=== PATIENT | female | born 2000 | race Caucasian/White ===

== ENCOUNTER 2019-02-23 11:25 | Emergency (ER) | payer SELFPAY ==
[2019-02-23] MEDS ORDERED: ACETAMINOPHEN 500 MG TAB ONE (14:09)
[2019-02-23] MEDS ORDERED: NA CHLORIDE 0.9% 1,000 ML ONE (14:16)
[2019-02-23 14:34] LABS: Absolute Lymphocytes (CBC) 1.8 K/uL (0.7-4.9); Absolute Monocytes 0.5 K/uL (0.1-1.3); Absolute Neutrophil 4.5 K/uL (1.8-8.0); Basophils % 0.7 % (0-1.3); Lymphocytes % 25.3 % (15.3-44.8); MPV 10.2 fL (7.6-11.3); Monocytes % 7.6 % (3.3-12.3); RBC Red Blood Cell Count 4.73 M/uL (3.86-4.86)
[2019-02-23 14:47] LABS: BUN Blood Urea Nitrogen 8 mg/dL (7-18); Bicarbonate 29 mmol/L (21-32); Glucose Level 74 mg/dL (74-106); HCG, Quantitative 68 mIU/mL (1-3); Potassium 3.6 mmol/L (3.5-5.1); Sodium Level 140 mmol/L (136-145)
--- NOTE | 2019-02-23 17:25 | ER ---
Nurse's Notes [facility] Name: Nida Gutierrez Age: 18 yrs Sex: Female : 2000 Arrival Date: 02/23/2019 Time: 11:29 Bed 25 Private MD: Diagnosis: Threatened Presentation: 02/23 11:36 Presenting complaint: Patient states: i took 2 test last night and they were tw2 positive and i started spotting this morning, i just want to make sure everything is ok. Transition of care: patient was not received from another setting of care. Onset of symptoms was February 23, 2019. Risk Assessment: Do you want to hurt yourself or someone else? Patient reports no desire to harm self or others. Initial Sepsis Screen: Does the patient meet any 2 criteria? No. Patient's initial sepsis screen is negative. Does the patient have a suspected source of infection? No. Patient's initial sepsis screen is negative. Care prior to arrival: None. 11:36 Method Of Arrival: Ambulatory tw2 11:36 Acuity: AMBER 3 tw2 Triage Assessment: 11:38 General: Appears in no apparent distress. Behavior is calm, cooperative, appropriate tw2 for age. Pain: Complains of pain in headache. : Reports vaginal bleeding that is bright red, spotty. 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 - Social history:: Smoking status: Patient/guardian denies using tobacco. - Ebola Screening: : Patient denies travel to an Ebola-affected area in the 21 days before illness onset. Screenin:00 Abuse screen: Denies threats or abuse. Denies injuries from another. Nutritional ca1 screening: No deficits noted. Tuberculosis screening: No symptoms or risk factors identified. Fall Risk None identified. Assessment: 13:00 General: Appears in no apparent distress. comfortable, Behavior is calm, cooperative, ca1 appropriate for age. General:. Pain: Denies pain. Pain began But had back lower back pain this morning. Denies abdominal pain. Neuro: Level of Consciousness is awake, alert, obeys commands, Oriented to person, place, time, situation. Cardiovascular: Heart tones S1 S2 present Capillary refill < 3 seconds Patient's skin is warm and dry. Respiratory: Airway is patent Respiratory effort is even, unlabored, Respiratory pattern is regular, symmetrical. GI: Abdomen is flat, non-distended, Bowel sounds present X 4 quads. Abd is soft and non tender X 4 quads. GI: Reports nausea, vomiting, since this morning. : Urine is clear, Reports vaginal bleeding that is spotty, since this morning. EENT: No deficits noted. No signs and/or symptoms were reported regarding the EENT system. Derm: Skin is intact, is healthy with good turgor, Skin is pink, warm \T\ dry. Musculoskeletal: Circulation, motion, and sensation intact. Capillary refill < 3 seconds. 13:55 Reassessment: Pt reports vaginal bleeding after going to the restroom. Vaginal bleeding ca1 is bright red and saturates half of the pantyliner. Informed provider. 14:00 Reassessment: Patient appears in no apparent distress at this time. Patient and/or ca1 family updated on plan of care and expected duration. Pain level reassessed. Patient is alert, oriented x 3, equal unlabored respirations, skin warm/dry/pink. 15:51 Reassessment: Patient appears in no apparent distress at this time. Patient is alert, ca1 oriented x 3, equal unlabored respirations, skin warm/dry/pink. FINN Morales at bedside. 16:40 Reassessment: Patient appears in no apparent distress at this time. Patient is alert, ca1 oriented x 3, equal unlabored respirations, skin warm/dry/pink. Orders of RhoGam, called lab to check if ready for parts picker. 16:44 Reassessment: Sent order through the tube. ca1 17:30 Reassessment: Patient appears in no apparent distress at this time. Patient and/or ca1 family updated on plan of care and expected duration. Pain level reassessed. Patient is alert, oriented x 3, equal unlabored respirations, skin warm/dry/pink. Pending RhoGam. 18:16 Reassessment: Patient appears in no apparent distress at this time. Patient is alert, ca1 oriented x 3, equal unlabored respirations, skin warm/dry/pink. RhoGam given, kept pt for observation for any reactions. 18:57 Reassessment: Patient appears in no apparent distress at this time. Patient is alert, ca1 oriented x 3, equal unlabored respirations, skin warm/dry/pink. Vital Signs: 11:37 Pulse 117; Resp 18; Temp 97.5(O); Pulse Ox 99% on R/A; Weight 52.16 kg (R); Height 4 tw2 ft. 11 in. (149.86 cm) (R); Pain 8/10; 13:00 BP 110 / 73; Pulse 100; Resp 19; Pulse Ox 100% on R/A; ca1 13:55 BP 106 / 69; Pulse 84; Resp 19 S; Pulse Ox 100% on R/A; ca1 15:51 BP 100 / 77; Pulse 78; Resp 18 S; Pulse Ox 100% on R/A; ca1 16:40 BP 106 / 80; Pulse 101; Resp 18 S; Pulse Ox 95% on R/A; ca1 17:30 BP 114 / 77; Pulse 86; Resp 19 S; Pulse Ox 99% on R/A; ca1 18:57 BP 125 / 75; Pulse 95; Resp 19 S; Pulse Ox 98% on R/A; ca1 11:37 Body Mass Index 23.23 (52.16 kg, 149.86 cm) tw2 ED Course: 11:29 Patient arrived in ED. mr 11:37 Triage completed. tw2 11:37 Arm band placed on. tw2 12:55 Munir Everett PA is PHCP. cp 12:55 Ashu Julian MD is Attending Physician. cp 12:56 Nelida Salinas, ANGEL is Primary Nurse. ca1 13:00 Patient has correct armband on for positive identification. Placed in gown. Bed in low ca1 position. Call light in reach. Side rails up X 1. Pulse ox on. NIBP on. Warm blanket given. 14:18 Initial lab(s) drawn, by me, sent to lab. Inserted saline lock: 22 gauge in left lt1 antecubital area, using aseptic technique. 18:58 No provider procedures requiring assistance completed. IV discontinued, intact, ca1 bleeding controlled, No redness/swelling at site. Pressure dressing applied. Administered Medications: 14:15 Drug: NS 0.9% 1000 ml Route: IV; Rate: 1 bolus; Site: left antecubital; ca1 15:20 Follow up: Urine output 320 ml; Response: No adverse reaction; IV Status: Completed ca1 infusion 14:25 Not Given (Patient Refused): Tylenol 1000 mg PO once ca1 15:14 Drug: Rho D Immune Globulin 300 mcg Route: IM; Site: left gluteus; ca1 18:55 Follow up: Response: No adverse reaction ca1 Output: 15:20 Urine: 320ml; Total: 320ml. ca1 Outcome: 17:24 Discharge ordered by MD. cp 18:58 Discharged to home ambulatory, with significant other. ca1 18:58 Condition: stable 18:58 Discharge instructions given to patient, Instructed on discharge instructions, follow up and referral plans. medication usage, Demonstrated understanding of instructions, follow-up care, medications, Prescriptions given X 1. 18:59 Patient left the ED. ca1 Signatures: Gabriela Palacios mr Munir Everett PA PA cp Wise, Tara, RN RN tw2 Nelida Salinas RN RN ca1 Brissa Danielle lt1
--- NOTE | 2019-02-23 17:25 | EDPHYS ---
Physician Documentation [facility] Name: Nida Gutierrez Age: 18 yrs Sex: Female : 2000 Arrival Date: 02/23/2019 Time: 11:29 Bed 25 Private MD: ED Physician Ashu Julian HPI: 02/23 13:45 This 18 yrs old Female presents to ER via Ambulatory with complaints of cp Vaginal Bleeding, Positive test. 13:45 The patient presents with vaginal bleeding that is spotting, a desire for a cp test. Onset: The symptoms/episode began/occurred yesterday. Associated signs and symptoms: Pertinent negatives: constipation, cramping, diarrhea, dysuria, fever, urinary frequency, vaginal discharge, vomiting, abdominal pain. Severity of symptoms: in the emergency department the symptoms are unchanged. The patient is sexually active, does not use protection during intercourse. 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 - Social history:: Smoking status: Patient/guardian denies using tobacco. - Ebola Screening: : Patient denies travel to an Ebola-affected area in the 21 days before illness onset. ROS: 13:50 Constitutional: Negative for body aches, chills, fever, poor PO intake. cp 13:50 Eyes: Negative for injury, pain, redness, and discharge. cp 13:50 ENT: Negative for drainage from ear(s), ear pain, sore throat, difficulty swallowing, difficulty handling secretions. 13:50 Cardiovascular: Negative for chest pain. 13:50 Respiratory: Negative for cough, shortness of breath, wheezing. 13:50 Abdomen/GI: Positive for abdominal pain, Negative for nausea, vomiting, and diarrhea, constipation, anorexia, black/tarry stool, flatulence. 13:50 : Positive for vaginal bleeding, Negative for urinary symptoms, pelvic pain, flank pain. 13:50 Skin: Negative for cellulitis, swelling. 13:50 Neuro: Negative for altered mental status, dizziness, weakness. 13:50 All other systems are negative. Exam: 14:00 Constitutional: The patient appears in no acute distress, alert, awake, non-toxic, well cp developed, well nourished. 14:00 Head/Face: Normocephalic, atraumatic. cp 14:00 Eyes: Periorbital structures: appear normal, Conjunctiva: normal, no exudate, no injection, Lids and lashes: appear normal, bilaterally. 14:00 ENT: External ear(s): are unremarkable, Nose: is normal, Mouth: Lips: moist, Oral mucosa: moist, Posterior pharynx: Airway: no evidence of obstruction, patent. 14:00 Chest/axilla: Inspection: normal, Palpation: is normal. 14:00 Cardiovascular: Rate: normal, Rhythm: regular. 14:00 Respiratory: the patient does not display signs of respiratory distress, Respirations: normal, no use of accessory muscles, no retractions, no splinting, no tachypnea, labored breathing, is not present, Breath sounds: are clear throughout, no decreased breath sounds, no stridor, no wheezing. 14:00 Abdomen/GI: Inspection: abdomen appears normal, Bowel sounds: active, all quadrants, Palpation: abdomen is soft and non-tender, in all quadrants. 14:00 Back: pain, is absent, ROM is normal. 14:00 Skin: no rash present. Vital Signs: 11:37 Pulse 117; Resp 18; Temp 97.5(O); Pulse Ox 99% on R/A; Weight 52.16 kg (R); Height 4 tw2 ft. 11 in. (149.86 cm) (R); Pain 8/10; 13:00 BP 110 / 73; Pulse 100; Resp 19; Pulse Ox 100% on R/A; ca1 13:55 BP 106 / 69; Pulse 84; Resp 19 S; Pulse Ox 100% on R/A; ca1 15:51 BP 100 / 77; Pulse 78; Resp 18 S; Pulse Ox 100% on R/A; ca1 16:40 BP 106 / 80; Pulse 101; Resp 18 S; Pulse Ox 95% on R/A; ca1 17:30 BP 114 / 77; Pulse 86; Resp 19 S; Pulse Ox 99% on R/A; ca1 18:57 BP 125 / 75; Pulse 95; Resp 19 S; Pulse Ox 98% on R/A; ca1 11:37 Body Mass Index 23.23 (52.16 kg, 149.86 cm) tw2 MDM: 12:55 Patient medically screened. cp 14:00 Differential diagnosis: dysmenorrhea, malignancy, menometrorrhagia, ovarian cyst, cp ruptured ectopic , uterine fibroids, urinary tract infection. 17:20 Data reviewed: vital signs, nurses notes, lab test result(s), and as a result, I will cp discharge patient. 17:22 Counseling: I had a detailed discussion with the patient and/or guardian regarding: the cp historical points, exam findings, and any diagnostic results supporting the discharge/admit diagnosis, lab results, the need for outpatient follow up, an OB/Gyne specialist, to return to the emergency department if symptoms worsen or persist or if there are any questions or concerns that arise at home. 02/23 13:51 Order name: Quantitative Hcg; Complete Time: 15:24 02/23 15:24 Interpretation: HCGQ 68; Reviewed. 02/23 13:51 Order name: Abo/rh Typing 02/23 16:18 Interpretation: Reviewed. 02/23 13:51 Order name: Basic Metabolic Panel; Complete Time: 15:24 02/23 15:42 Interpretation: Reviewed. 02/23 13:51 Order name: CBC with Diff; Complete Time: 15:24 02/23 17:00 Order name: Rh Typing [facility] 02/23 17:00 Order name: Antibody Screen [facility] 02/23 13:51 Order name: Urine Test (obtain specimen); Complete Time: 14:25 02/23 13:51 Order name: IV Saline Lock; Complete Time: 14:18 02/23 17:00 Order name: Fetalscreen [facility] 02/23 17:00 Order name: Cord Rh type [facility] 02/23 17:00 Order name: Rhogam [facility] 02/23 13:51 Order name: Labs collected and sent; Complete Time: 14:18 02/23 13:51 Order name: NPO; Complete Time: 14:25 02/23 13:51 Order name: Urine Dipstick-Ancillary (obtain specimen); Complete Time: 14:18 cp Administered Medications: 14:15 Drug: NS 0.9% 1000 ml Route: IV; Rate: 1 bolus; Site: left antecubital; ca1 15:20 Follow up: Urine output 320 ml; Response: No adverse reaction; IV Status: Completed ca1 infusion 14:25 Not Given (Patient Refused): Tylenol 1000 mg PO once ca1 15:14 Drug: Rho D Immune Globulin 300 mcg Route: IM; Site: left gluteus; ca1 18:55 Follow up: Response: No adverse reaction ca1 Disposition: 02/24 06:48 Co-signature as Attending Physician, Ashu Julian MD I agree with the assessment and kdr plan of care. Disposition: 02/23/19 17:24 Discharged to Home. Impression: Threatened . - Condition is Stable. - Discharge Instructions: Threatened Miscarriage, Vaginal Bleeding During , First Trimester, Pelvic Rest. - Prescriptions for Vitamin 27- 0.8 mg Oral Tablet - take 1 tablet by ORAL route once daily; 60 tablet. - Medication Reconciliation Form, Thank You Letter, Antibiotic Education, Prescription Opioid Use form. - Follow up: Private Physician; When: 48 Hours; Reason: Repeat Beta-HCG (48 Hours). - Problem is new. - Symptoms have improved. Signatures: Dispatcher [employer] EDMS Ashu Julian MD MD kdr Munir Everett PA PA cp Lashell Gonzalez RN RN tw2 Nelida Salinas RN RN ca1 Corrections: (The following items were deleted from the chart) 02/23 18:59 17:24 02/23/2019 17:24 Discharged to Home. Impression: Threatened . Condition ca1 is Stable. Forms are Medication Reconciliation Form, Thank You Letter, Antibiotic Education, Prescription Opioid Use. Follow up: Private Physician; When: 48 Hours; Reason: Repeat Beta-HCG (48 Hours). Problem is new. Symptoms have improved. cp
[2019-02-23 19:04] VITALS: TEMP 97.5
[2019-02-23 19:11] VITALS: BP 125/75; O2SAT 98
== END 2019-02-23 18:59 | disposition home or self-care (01) ==
LOC: ER 11:25
DX: O20.0 Threatened abortion (principal); Z3A.00 Weeks of gestation of pregnancy not specified
CPT/HCPCS: 36415; 80048; 84702; 85025; 85461; 86850; 86900; 86901; 96360; 96372; 99284; J2790; J7030

== ENCOUNTER 2019-02-25 19:41 | Emergency (ER) | payer SELFPAY ==
--- NOTE | 2019-02-25 22:33 | ER ---
Nurse's Notes [facility] Name: Nida Gutierrez Age: 18 yrs Sex: Female : 2000 Arrival Date: 02/25/2019 Time: 19:42 Bed 14 Private MD: Diagnosis: Spontaneous Presentation: 02/25 19:57 Presenting complaint: Patient states: "I'm just here to get a blood test done to see if aj1 my hormones have come up, I was here 2 days ago, but I dont have a doctor so they told me to just come back" Patient reports that she is still having some vaginal bleeding at this time, but she is still having positive tests. Transition of care: patient was not received from another setting of care. Onset of symptoms was February 23, 2018. Risk Assessment: Do you want to hurt yourself or someone else? Patient reports no desire to harm self or others. Initial Sepsis Screen: Does the patient meet any 2 criteria? No. Patient's initial sepsis screen is negative. Does the patient have a suspected source of infection? No. Patient's initial sepsis screen is negative. Care prior to arrival: None. 19:57 Method Of Arrival: Ambulatory aj1 19:57 Acuity: AMBER 4 aj1 Triage Assessment: 19:59 General: Appears in no apparent distress. comfortable, Behavior is calm, cooperative, aj1 appropriate for age. Pain: Denies pain. Neuro: Level of Consciousness is awake, alert, obeys commands, Oriented to person, place, time, situation. Cardiovascular: Patient's skin is warm and dry. Respiratory: Airway is patent Respiratory effort is even, unlabored, Respiratory pattern is regular, symmetrical. : Parent/caregiver report the patient having vaginal bleeding that is bright red that is "just like a normal period". Derm: No signs and/or symptoms reported regarding the dermatologic system. Skin is pink, warm \\T\\ dry. normal. 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 - Social history:: Smoking status: Patient/guardian denies using tobacco. - Ebola Screening: : Patient denies travel to an Ebola-affected area in the 21 days before illness onset. Screenin:05 Abuse screen: Denies threats or abuse. Denies injuries from another. Nutritional ak1 screening: No deficits noted. Tuberculosis screening: No symptoms or risk factors identified. Fall Risk None identified. Assessment: 20:05 Reassessment: Patient appears in no apparent distress at this time. Patient and/or ak1 family updated on plan of care and expected duration. Pain level reassessed. Patient is alert, oriented x 3, equal unlabored respirations, skin warm/dry/pink. pt denies pain. pt denies any new vaginal bleeding stating the bleeding is the same amount and frequency as 2 days ago when seen in ER. pt stated she returned to ER for HCG testing due to not having an established DIETITIAN HELPER. General: Appears in no apparent distress. Neuro: No deficits noted. Cardiovascular: No deficits noted. Respiratory: No deficits noted. GI: No signs and/or symptoms were reported involving the gastrointestinal system. : No signs and/or symptoms were reported regarding the genitourinary system. EENT: No signs and/or symptoms were reported regarding the EENT system. Derm: No signs and/or symptoms reported regarding the dermatologic system. Musculoskeletal: No signs and/or symptoms reported regarding the musculoskeletal system. 20:38 Reassessment: Patient appears in no apparent distress at this time. No changes from ak1 previously documented assessment. pt waiting for lab results. 21:37 Reassessment: Patient appears in no apparent distress at this time. No changes from ak1 previously documented assessment. Patient and/or family updated on plan of care and expected duration. Pain level reassessed. pt waiting on US. Vital Signs: 19:59 BP 116 / 78; Pulse 84; Resp 18; Temp 97.9; Pulse Ox 100% on R/A; Weight 52.16 kg (R); aj1 Height 4 ft. 11 in. (149.86 cm) (R); Pain 0/10; 19:59 Body Mass Index 23.23 (52.16 kg, 149.86 cm) aj1 ED Course: 19:42 Patient arrived in ED. do 19:58 Triage completed. aj1 19:59 Arm band placed on Patient placed in an exam room. aj1 20:01 José Miguel Montejo PA is PHCP. jr8 20:01 Marino Ulrich MD is Attending Physician. jr8 20:05 Selma Dhillon, RN is Primary Nurse. ak1 20:05 Patient has correct armband on for positive identification. Bed in low position. Call ak1 light in reach. Side rails up X 1. 22:13 US Transvaginal Ob In Process Unspecified. EDMS 22:13 Ultrasound completed. Patient tolerated well. sg3 22:33 No provider procedures requiring assistance completed. Patient did not have IV access ak1 during this emergency room visit. Administered Medications: No medications were administered Outcome: 22:32 Discharge ordered by . jr8 22:33 Discharged to home ambulatory, with family. ak1 22:33 Condition: stable 22:33 Discharge instructions given to patient, Instructed on discharge instructions, follow up and referral plans. Demonstrated understanding of instructions, follow-up care. 22:38 Patient left the ED. ak1 Signatures: Dispatcher [employer] EDMS Tawnya Curtis, RN RN aj1 José Miguel Montejo PA PA jr8 Selma Dhillon, RN RN ak1 Lilian Nelson Sarah sg3
--- NOTE | 2019-02-25 22:33 | EDPHYS ---
Physician Documentation [facility] Name: Nida Gutierrez Age: 18 yrs Sex: Female : 2000 Arrival Date: 02/25/2019 Time: 19:42 Bed 14 Private MD: ED Physician Marino Ulrich HPI: 02/25 20:31 This 18 yrs old Female presents to ER via Ambulatory with complaints of Blood jr8 Test for Hormone Levels. 20:31 Patient was seen here 48 hours ago. 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 Stated that she started spotting on the of this month. Still spotting but improving somewhat. Stated that she was told to come back here for redraw of her HCG . Severity of symptoms: At their worst the symptoms were mild in the emergency department the symptoms are unchanged. The patient has not experienced similar symptoms in the past. The patient has been recently seen by a physician:. 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 - Social history:: Smoking status: Patient/guardian denies using tobacco. - Ebola Screening: : Patient denies travel to an Ebola-affected area in the 21 days before illness onset. ROS: 20:31 Eyes: Negative for injury, pain, redness, and discharge, ENT: Negative for injury, jr8 pain, and discharge, Neck: Negative for injury, pain, and swelling, Cardiovascular: Negative for chest pain, palpitations, and edema, Respiratory: Negative for shortness of breath, cough, wheezing, and pleuritic chest pain, Abdomen/GI: Negative for abdominal pain, nausea, vomiting, diarrhea, and constipation, Back: Negative for injury and pain, MS/Extremity: Negative for injury and deformity, Skin: Negative for injury, rash, and discoloration, Neuro: Negative for headache, weakness, numbness, tingling, and seizure. 20:31 : Positive for vaginal bleeding, missed period. Exam: 20:31 Eyes: Pupils equal round and reactive to light, extra-ocular motions intact. Lids and jr8 lashes normal. Conjunctiva and sclera are non-icteric and not injected. Cornea within normal limits. Periorbital areas with no swelling, redness, or edema. ENT: Nares patent. No nasal discharge, no septal abnormalities noted. Tympanic membranes are normal and external auditory canals are clear. Oropharynx with no redness, swelling, or masses, exudates, or evidence of obstruction, uvula midline. Mucous membranes moist. Neck: Trachea midline, no thyromegaly or masses palpated, and no cervical lymphadenopathy. Supple, full range of motion without nuchal rigidity, or vertebral point tenderness. No Meningismus. Cardiovascular: Regular rate and rhythm with a normal S1 and S2. No gallops, murmurs, or rubs. Normal PMI, no JVD. No pulse deficits. Respiratory: Lungs have equal breath sounds bilaterally, clear to auscultation and percussion. No rales, rhonchi or wheezes noted. No increased work of breathing, no retractions or nasal flaring. Abdomen/GI: Soft, non-tender, with normal bowel sounds. No distension or tympany. No guarding or rebound. No evidence of tenderness throughout. Back: No spinal tenderness. No costovertebral tenderness. Full range of motion. Skin: Warm, dry with normal turgor. Normal color with no rashes, no lesions, and no evidence of cellulitis. MS/ Extremity: Pulses equal, no cyanosis. Neurovascular intact. Full, normal range of motion. Neuro: Awake and alert, GCS 15, oriented to person, place, time, and situation. Cranial nerves II-XII grossly intact. Motor strength 5/5 in all extremities. Sensory grossly intact. Cerebellar exam normal. Normal gait. Vital Signs: 19:59 BP 116 / 78; Pulse 84; Resp 18; Temp 97.9; Pulse Ox 100% on R/A; Weight 52.16 kg (R); aj1 Height 4 ft. 11 in. (149.86 cm) (R); Pain 0/10; 19:59 Body Mass Index 23.23 (52.16 kg, 149.86 cm) aj1 MDM: 20:01 Patient medically screened. [facility] 21:04 Data reviewed: vital signs, nurses notes, lab test result(s), Beta HC today. Was jr8 68 two days ago. Data interpreted: Pulse oximetry: on room air is 100 %. Interpretation: normal. Counseling: I had a detailed discussion with the patient and/or guardian regarding: the historical points, exam findings, and any diagnostic results supporting the discharge/admit diagnosis, lab results, the need for outpatient follow up, an OB/Gyne specialist, to return to the emergency department if symptoms worsen or persist or if there are any questions or concerns that arise at home. 21:21 ED course: Detailed discussion with patient had significant other. After discussing jr8 with them that this will more then likely be a non viable vs. blighted ovum they requested to get US to make sure nothing else could be done . 22:31 ED course: No sign of IUP on US. That coupled with dropping HCG. More then likely jr8 Complete miscarry. Explained to them that they still need to f/u to trend HCG down to 0. 02/25 20:01 Order name: HCG-Quantitative; Complete Time: 20:57 jr8 02/25 21:21 Order name: Transvaginal Ob jr8 Administered Medications: No medications were administered Disposition: 02/26 07:11 Co-signature as Attending Physician, Marino Ulrich MD I agree with the assessment and tw4 plan of care. Disposition: 02/25/19 22:32 Discharged to Home. Impression: Spontaneous . - Condition is Stable. - Discharge Instructions: Miscarriage. - Medication Reconciliation Form, Thank You Letter, Antibiotic Education, Prescription Opioid Use form. - Follow up: Private Physician; When: 5 - 6 days; Reason: Recheck today's complaints, Continuance of care, Re-evaluation by your physician. - Problem is new. - Symptoms have improved. Signatures: Dispatcher [employer] Tawnya Goldberg RN RN golden1 José Miguel Montejo PA PA jr8 Selma Dhillon RN RN ak1 Marino Ulrich MD MD tw4 Corrections: (The following items were deleted from the chart) 02/25 22:38 22:32 02/25/2019 22:32 Discharged to Home. Impression: Spontaneous . Condition ak1 is Stable. Forms are Medication Reconciliation Form, Thank You Letter, Antibiotic Education, Prescription Opioid Use. Follow up: Private Physician; When: 5 - 6 days; Reason: Recheck today's complaints, Continuance of care, Re-evaluation by your physician. Problem is new. Symptoms have improved. jr8
[2019-02-25 23:10] VITALS: BP 116/78; TEMP 97.9; O2SAT 100
--- NOTE | 2019-02-26 09:04 | RAD REPORT ---
EXAM DESCRIPTION: US - Transvaginal OB - 02/25/2019 10:13 pm CLINICAL HISTORY: with vaginal bleeding COMPARISON: None. FINDINGS: The uterus 6 x 3 x 3 centimeters. The endometrial stripe measures 8 millimeters. A gestat ional sac is not seen. Ovaries are normal in size and echotexture. 2 centimeter right ovarian cyst. An adnexal mass is not n oted. No significant free fluid IMPRESSION: Nonvisualization of a gestational sac within the endometrium These findings could represent an early intrauterine in which the gestational sac is not se en. and even an ectopic can also result in this appearance. This all should be cor related clinically and with serial beta HCG levels. Followup endovaginal sonogram in 1 week recommend ed
== END 2019-02-25 22:38 | disposition home or self-care (01) ==
LOC: ER 19:41
DX: O03.9 Complete or unspecified spontaneous abortion without complication (principal); Z3A.00 Weeks of gestation of pregnancy not specified
CPT/HCPCS: 36415; 76817; 84702; 99283

== ENCOUNTER 2020-08-11 01:17 | Emergency (ER) | payer OTHER ==
--- OUTSIDE RECORDS SUMMARY | 2020-08-11 01:19 | XMS REPORT | Continuity of Care Document ---
:2000 Author Organization [facility] t Address [address] [place] [address] Care Team Providers Name Role Phone 1, Lab Attending Clinician Unavailable Doctor Unassigned, Name Attending Clinician Unavailable Nurse, [facility] Attending Clinician Unavailable Pob, Lab Main Attending Clinician Unavailable Juan Antonio CASIANO Attending Clinician 2, Lab Attending Clinician Unavailable Problems This patient has no known problems. Allergies, Adverse Reactions, Alerts This patient has no known allergies or adverse reactions. Medications This patient has no known medications. Procedures This patient has no known procedures. Encounters Start End Encounter Admission Attending Care Care Encounter Source Date/Time Date/Time Type Type Clinicians Facility Department ID 2019-12-27 2019-12-27 Gem Stone Cutter 1, [facility] [id number] 10:10:38 10:25:38 Visit Natalie [id number] [place] [id number] [place] [phone] [id number] 2019-12-27 2019-12-27 Orders Doctor DANIEL [id number] 00:00:00 00:00:00 Only UnassignedSEGUN [id number] [place] [facility] [id number] [id number] 2019-12-27 2019-12-27 Telephone Nurse, [facility] 1.2.840.114 [id number] 00:00:00 00:00:00 [facility] [place] [id number] [facility] [id number] [place] [phone] [address] 2019-12-23 2019-12-23 Gem Stone Cutter Pob, [facility] 1.2.840.114 [id number] 11:17:50 11:32:50 Visit Lab Main [place] [id number] [place] [id number] Professio [phone] [address] 2019-12-21 2019-12-21 Gem Stone Cutter Nino, [facility] [place] 1.2.840.114 [id number] 11:14:10 11:29:10 Visit Lab Main Natalie [id number] [place] [id number] Professio [phone] [address] 2019-12-21 2019-12-21 Case Juan Antonio [facility] [id number] 00:00:00 00:00:00 Management vEelyne Estrada [id number] [place] [id number] Professio [phone] [address] 2019-12-20 2019-12-20 Telephone Juan Antonio TXKRIS 1.2.840.114 [id number] 00:00:00 00:00:00 Evelyne Estrada [id number] [place] [id number] Professio [phone] [address] 2019-12-19 2019-12-19 Gem Stone Cutter 2, [facility] [place] [id number] 13:41:09 13:56:09 Visit Natalie [id number] [place] [id number] Professio [phone] [address] 2019-12-19 2019-12-19 Office Juan Antonio [facility] [id number] 13:03:35 13:32:08 Visit Evelyne Estrada [id number] [place] [id number] Professio [phone] [address] 2019-12-19 2019-12-19 Orders Doctor DANIEL [id number] 00:00:00 00:00:00 Only Unassigned, SE[place] [id number] [place] [facility] [id number] [id number] Results This patient has no known results.
--- NOTE | 2020-08-11 02:36 | ER ---
Nurse's Notes [facility] Name: Nida Gutierrez Age: 19 yrs Sex: Female : 2000 Arrival Date: 08/11/2020 Time: 01:18 Bed 5 Private MD: Diagnosis: ED Course: 08/11 01:18 Patient arrived in ED. cl3 01:47 Patient's name was called from ER lobby. No response. bb 02:35 Patient's name was called from ER lobby. No response. Unable to locate patient. Will bb disposition as left without being seen by a provider. Administered Medications: No medications were administered Outcome: 02:35 Patient left the ED. bb Signatures: Brissa Scherer RN RN bb Chary Ferguson cl3
== END 2020-08-11 02:35 | disposition left against medical advice (07) ==
LOC: ER 01:17
DX: Z02.9 Encounter for administrative examinations, unspecified (principal)

== ENCOUNTER 2020-08-11 11:28 | Emergency (ER) | payer OTHER, SELFPAY ==
--- OUTSIDE RECORDS SUMMARY | 2020-08-11 11:30 | XMS REPORT | Continuity of Care Document ---
:2000 Author Organization [facility] t Address [address] [place] [address] Care Team Providers Name Role Phone 1, Lab Attending Clinician Unavailable Doctor Unassigned, Name Attending Clinician Unavailable Nurse, [facility] Attending Clinician Unavailable Pob, Lab Main Attending [...] Type Clinicians Facility Department ID 2019-12-27 2019-12-27 Electronics Recycler 1, [facility] 1.2.840.114 [id number] 10:10:38 10:25:38 Visit Natalie [id number] [place] [id number] [place] [phone] [id number] 2019-12-27 2019-12-27 Orders Doctor DANIEL 1.2.840.114 [id number] 00:00:00 00:00:00 Only UnassignedSEGUN [id number] [place] [facility] [id number] 2019-12-27 2019-12-27 Telephone Nurse, [facility] 1.2.840.114 [id number] 00:00:00 00:00:00 [facility] [place] [id number] [facility] [id number] Professio [phone] [address] 2019-12-23 2019-12-23 Electronics Recycler Pob, [facility] 1.2.840.114 [id number] 11:17:50 11:32:50 Visit Lab Main [place] [id number] [place] [id number] Professio [phone] [address] 2019-12-21 2019-12-21 Electronics Recycler Nino, [facility] [place] 1.2.840.114 [id number] 11:14:10 11:29:10 Visit Lab Main [place] [id number] [place] [id number] Professio [phone] [address] 2019-12-21 2019-12-21 Case Juan Antonio [facility] [id number] 00:00:00 00:00:00 Management Evelyne Estrada [id number] [place] [id number] Professio [phone] [address] 2019-12-20 2019-12-20 Telephone Juan Antonio VTKRIS 1.2.840.114 [id number] 00:00:00 00:00:00 Evelyne Estrada [id number] [place] [id number] Professio [phone] [address] 2019-12-19 2019-12-19 Electronics Recycler 2, [facility] [place] 1.2.840.114 [id number] 13:41:09 13:56:09 Visit Natalie [id number] [place] [id number] Professio [phone] [address] 2019-12-19 2019-12-19 Office Juan Antonio [facility] [id number] 13:03:35 13:32:08 Visit Evelyne Estrada [id number] [place] [id number] Professio [phone] [address] 2019-12-19 2019-12-19 Orders Doctor DANIEL 1.2.840.114 [id number] 00:00:00 00:00:00 Only Unassigned, SEGUN [id number] [place] [facility] [id number] [id number] Results This patient has no known results.
[2020-08-11] MEDS ORDERED: DIPHENHYDRAMINE 50 MG/ML VIAL ONE (12:42)
[2020-08-11] MEDS ORDERED: KETOROLAC 30 MG/ML INJ ONE (12:43)
[2020-08-11] MEDS ORDERED: NA CHLORIDE 0.9% 1,000 ML ONE (12:43)
--- NOTE | 2020-08-11 14:28 | EDPHYS ---
Physician Documentation [facility] Name: Nida Gutierrez Age: 19 yrs Sex: Female : 2000 Arrival Date: 08/11/2020 Time: 11:33 Bed 4 Private MD: ED Physician Ashu Julian HPI: 08/12 07:22 This 19 yrs old Female presents to ER via Ambulatory with complaints of kdr Headache, Vomiting. 07:22 The patient complains of pain to the top of head and forehead. The patient describes kdr the headache as aching, waxing and waning. Onset: The symptoms/episode began/occurred yesterday. Associated signs and symptoms: Pertinent positives: nausea, vomiting, Pertinent negatives: altered mental status, dizziness, malaise, neck stiffness, paresthesias, Photophobia rash, sinus congestion, sinus tenderness, vision changes, vision loss. Severity of symptoms: At its worst the pain was mild, in the emergency department the pain has resolved. Headache History: The patient has had previous headaches and this one is similar to previous episodes. The symptoms are alleviated by nothing. the symptoms are aggravated by nothing. The patient has not experienced similar symptoms in the past. The patient has not recently seen a physician, Concerned that she may be - she is five days late on her period. 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 - Social history:: Smoking status: Patient denies any tobacco usage or history of. ROS: 08/12 07:22 Constitutional: Negative for fever, chills, and weight loss, Eyes: Negative for injury, kdr pain, redness, and discharge, Neck: Negative for injury, pain, and swelling, Cardiovascular: Negative for chest pain, palpitations, and edema, Respiratory: Negative for shortness of breath, cough, wheezing, and pleuritic chest pain, Back: Negative for injury and pain, : Negative for injury, bleeding, discharge, and swelling, MS/Extremity: Negative for injury and deformity, Skin: Negative for injury, rash, and discoloration, Psych: Negative for depression, anxiety, suicide ideation, homicidal ideation, and hallucinations, Allergy/Immunology: Negative for hives, rash, and allergies, Endocrine: Negative for neck swelling, polydipsia, polyuria, polyphagia, and marked weight changes, Hematologic/Lymphatic: Negative for swollen nodes, abnormal bleeding, and unusual bruising. Abdomen/GI: Positive for nausea and vomiting, Negative for diarrhea, constipation, abdominal cramps, abdominal distension, anorexia, dysphagia, hematemesis, black/tarry stool, rectal pain, rectal bleeding, bowel incontinence. Neuro: Positive for headache, Negative for altered mental status, dizziness, hearing loss, loss of consciousness, numbness, seizure activity, speech changes, syncope, near syncope, tinnitus, tremor, visual changes. Exam: 07:22 Constitutional: This is a well developed, well nourished patient who is awake, alert, kdr and in no acute distress. Head/Face: Normocephalic, atraumatic. Eyes: Pupils equal round and reactive to light, extra-ocular motions intact. Lids and lashes normal. Conjunctiva and sclera are non-icteric and not injected. Cornea within normal limits. Periorbital areas with no swelling, redness, or edema. Neck: Trachea midline, no thyromegaly or masses palpated, and no cervical lymphadenopathy. Supple, full range of motion without nuchal rigidity, or vertebral point tenderness. No Meningismus. Chest/axilla: Normal chest wall appearance and motion. Nontender with no deformity. No lesions are appreciated. Cardiovascular: Regular rate and rhythm with a normal S1 and S2. No gallops, murmurs, or rubs. Normal PMI, no JVD. No pulse deficits. Respiratory: Lungs have equal breath sounds bilaterally, clear to auscultation and percussion. No rales, rhonchi or wheezes noted. No increased work of breathing, no retractions or nasal flaring. Abdomen/GI: Soft, non-tender, with normal bowel sounds. No distension or tympany. No guarding or rebound. No evidence of tenderness throughout. Back: No spinal tenderness. No costovertebral tenderness. Full range of motion. Skin: Warm, dry with normal turgor. Normal color with no rashes, no lesions, and no evidence of cellulitis. MS/ Extremity: Pulses equal, no cyanosis. Neurovascular intact. Full, normal range of motion. Neuro: Awake and alert, GCS 15, oriented to person, place, time, and situation. Cranial nerves II-XII grossly intact. Motor strength 5/5 in all extremities. Sensory grossly intact. Cerebellar exam normal. Normal gait. Psych: Awake, alert, with orientation to person, place and time. Behavior, mood, and affect are within normal limits. Vital Signs: 08/11 11:37 BP 112 / 82; Pulse 79; Resp 17; Temp 97.9; Pulse Ox 98% ; Weight 63.5 kg; Height 4 ft. ll1 11 in. (149.86 cm); Pain 8/10; 11:37 Body Mass Index 28.28 (63.50 kg, 149.86 cm) ll1 MDM: 14:28 Patient medically screened. kdr 08/12 07:22 Data reviewed: vital signs, nurses notes, lab test result(s), radiologic studies. kdr Counseling: I had a detailed discussion with the patient and/or guardian regarding: the historical points, exam findings, and any diagnostic results supporting the discharge/admit diagnosis, lab results, radiology results, the need for outpatient follow up. 08/11 13:17 Order name: HCG-Quantitative iw Administered Medications: 08/11 13:02 Drug: NS 0.9% 1000 ml Route: IV; Rate: 1 bolus; Site: right antecubital; hb 14:30 Follow up: IV Status: Completed infusion iw 13:18 Drug: Benadryl 12.5 mg Route: IVP; Site: right antecubital; hb 14:30 Follow up: Response: No adverse reaction iw 14:16 Not Given (Patient Refused): TORadol - Ketorolac 15 mg IVP once; When UPT negative iw Disposition: 08/11/20 14:28 Discharged to Home. Impression: Vomiting, Headache. - Condition is Stable. - Discharge Instructions: General Headache Without Cause, Nausea and Vomiting, Adult, Bcbw-ay-Aolk. - Medication Reconciliation Form, Thank You Letter, Work release form form. - Follow up: Private Physician; When: 2 - 3 days; Reason: If symptoms return, Further diagnostic work-up, Recheck today's complaints, Continuance of care, Re-evaluation by your physician. - Problem is an ongoing problem. - Symptoms have improved. Signatures: Dispatcher [employer] EDMS Rittger, Ashu, Kayla Rushing MD, RN RN iw Princess Benitez, ANGEL RN Jey Ferguson, RN RN ll1 Corrections: (The following items were deleted from the chart) 14:38 14:28 08/11/2020 14:28 Discharged to Home. Impression: Vomiting; Headache. Condition is iw Stable. Forms are Medication Reconciliation Form, Thank You Letter, Antibiotic Education, Prescription Opioid Use. Follow up: Private Physician; When: 2 - 3 days; Reason: If symptoms return, Further diagnostic work-up, Recheck today's complaints, Continuance of care, Re-evaluation by your physician. Problem is an ongoing problem. Symptoms have improved. kdr
--- NOTE | 2020-08-11 14:28 | ER ---
Nurse's Notes [facility] Name: Nida Gutierrez Age: 19 yrs Sex: Female : 2000 Arrival Date: 08/11/2020 Time: 11:33 Bed 4 Private MD: Diagnosis: Vomiting;Headache Presentation: 08/11 11:37 Chief complaint: Patient states: VOSS with N/V since yesterday. No fever. test ll1 negative, LMP: July 07. Coronavirus screen: Client denies travel out of the [place] in the last 14 days. At this time, the client does not indicate any symptoms associated with coronavirus-19. Ebola Screen: Patient denies travel to an Ebola-affected area in the 21 days before illness onset. Initial Sepsis Screen: Does the patient meet any 2 criteria? No. Patient's initial sepsis screen is negative. Risk Assessment: Do you want to hurt yourself or someone else? Patient reports no desire to harm self or others. Onset of symptoms was August 10, 2020. 11:37 Method Of Arrival: Ambulatory 1 11:37 Acuity: AMBER 3 ll1 14:37 Initial Sepsis Screen: Does the patient have a suspected source of infection? No. iw Patient's initial sepsis screen is negative. Triage Assessment: 14:36 Headache History: The patient has had previous headaches and this one is similar to iw previous episodes. Pain: Pain currently is 0 out of 10 on a pain scale. Pain began Also complains of no other associated symptoms. 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 - Social history:: Smoking status: Patient denies any tobacco usage or history of. Screenin:36 Abuse screen: Denies threats or abuse. Denies injuries from another. Nutritional iw screening: No deficits noted. Tuberculosis screening: No symptoms or risk factors identified. Fall Risk None identified. Assessment: 13:23 General: Appears in no apparent distress. Behavior is calm, cooperative. Pain: iw Complains of pain in head. Neuro: Level of Consciousness is awake, alert, obeys commands, Oriented to person, place, time, situation, Moves all extremities. Full function. Cardiovascular: Capillary refill < 3 seconds in bilateral fingers Patient's skin is warm and dry. Respiratory: Respiratory effort is even, unlabored, Respiratory pattern is regular, symmetrical. GI: Reports vomiting. Derm: Skin is intact, is healthy with good turgor. Musculoskeletal: Range of motion: intact in all extremities. 13:25 Reassessment: pt states she got worried because she drank some water while at work last iw night and then she heard about th possible water contamination so she wanted to get checked out, pt was also concerned she may be because her period is four days late. 14:19 Reassessment: Patient appears in no apparent distress at this time. Patient and/or iw family updated on plan of care and expected duration. Pain level reassessed. Patient is alert, oriented x 3, equal unlabored respirations, skin warm/dry/pink. pt ate half a honey bun and drank half a bottle of spite, no nausea or vomiting, pt ready for dispo, updated on results and advised to repeat UPT at home if does not start period in the next few days Patient states feeling better. Patient states symptoms have improved. Vital Signs: 11:37 BP 112 / 82; Pulse 79; Resp 17; Temp 97.9; Pulse Ox 98% ; Weight 63.5 kg; Height 4 ft. ll1 11 in. (149.86 cm); Pain 8/10; 11:37 Body Mass Index 28.28 (63.50 kg, 149.86 cm) ll1 ED Course: 11:33 Patient arrived in ED. mr 11:39 Ashu Julian MD is Attending Physician. kdr 11:40 Triage completed. ll1 11:40 Arm band placed on Patient placed in an exam room, on a stretcher. ll1 12:07 Princess Benitez, RN is Primary Nurse. hb 13:24 No provider procedures requiring assistance completed. iw 13:24 Initial lab(s) drawn, by me. iw 14:35 IV discontinued, intact, bleeding controlled, No redness/swelling at site. Pressure iw dressing applied. 14:37 Patient has correct armband on for positive identification. iw Administered Medications: 13:02 Drug: NS 0.9% 1000 ml Route: IV; Rate: 1 bolus; Site: right antecubital; hb 14:30 Follow up: IV Status: Completed infusion iw 13:18 Drug: Benadryl 12.5 mg Route: IVP; Site: right antecubital; hb 14:30 Follow up: Response: No adverse reaction iw 14:16 Not Given (Patient Refused): TORadol - Ketorolac 15 mg IVP once; When UPT negative iw Outcome: 14:28 Discharge ordered by . kdr 14:36 Discharged to home ambulatory, with family. iw 14:36 Condition: good 14:36 Discharge instructions given to patient, family, Instructed on discharge instructions, follow up and referral plans. Demonstrated understanding of instructions, follow-up care. 14:38 Patient left the ED. iw Signatures: Ashu Julian MD MD [facility] Gabriela Palacios mr Kayla Maciel RN RN Princess Benitez RN RN Jey Ferguson RN RN ll1
[2020-08-11 14:44] VITALS: BP 112/82; TEMP 97.9; O2SAT 98
== END 2020-08-11 14:38 | disposition home or self-care (01) ==
LOC: ER 11:28
DX: R51 Headache (principal); R11.10 Vomiting, unspecified
CPT/HCPCS: 36415; 84702; 96361; 96374; 99283; J1200; J7030

== ENCOUNTER 2020-09-30 03:48 | Emergency (ER) | payer SELFPAY ==
--- OUTSIDE RECORDS SUMMARY | 2020-09-30 03:50 | XMS REPORT | Continuity of Care Document ---
:2000 Author Organization [facility] t Address [address] [place] [address] Care Team Providers Name Role Phone 1, Lab Attending Clinician Unavailable Doctor Unassigned, Name Attending Clinician Unavailable Nurse, [facility] Attending Clinician Unavailable Pob, Lab Main [...] Type Clinicians Facility Department ID 2019-12-27 2019-12-27 Automation Test Engineer 1, [facility] Lab [facility] [id number] 10:10:38 10:25:38 Visit [place] [id number] [place] [id number] [place] [phone] 353 2019-12-27 2019-12-27 Orders Doctor DANIEL [id number] 00:00:00 00:00:00 Only Unassigned, [place] [id number] [place] [facility] [id number] [id number] 2019-12-27 2019-12-27 Telephone Nurse, [facility] [id number] 00:00:00 00:00:00 [facility]'s [place] [id number] [facility] [id number] [place] [phone] [address] 2019-12-23 2019-12-23 Automation Test Engineer Pob, [facility] [id number] 11:17:50 11:32:50 Visit Lab Main [place] [id number] [place] [id number] [place] [phone] [address] 2019-12-21 2019-12-21 Automation Test Engineer Pob, [facility] 1.2.840.114 [id number] 11:14:10 11:29:10 Visit Lab Main [place] [id number] [place] [id number] [place] [phone] [address] 2019-12-21 2019-12-21 [facility] [id number] 00:00:00 00:00:00 Management Evelyne Estrada [id number] [place] [id number] [place] [phone] [address] 2019-12-20 2019-12-20 Telephone Juan Antonio [facility] [id number] 00:00:00 00:00:00 Evelyne Estrada [id number] [place] [id number] [place] [phone] [address] 2019-12-19 2019-12-19 Automation Test Engineer 2, [facility] Lab [facility] [id number] [id number] 13:41:09 13:56:09 Visit Natalie [id number] [place] [id number] [place] [phone] [address] 2019-12-19 2019-12-19 Office Juan Antonio [facility] [id number] 13:03:35 13:32:08 Visit Evelyne Estrada [id number] [place] [id number] [place] [phone] [address] 2019-12-19 2019-12-19 Orders Doctor DANIEL [id number] 00:00:00 00:00:00 Only Unassigned, SEG[place] [id number] [place] [facility] [phone] [id number] Results This patient has no known results.
[2020-09-30] MEDS ORDERED: DIPHENHYDRAMINE 50 MG/ML VIAL ONE (04:36)
[2020-09-30] MEDS ORDERED: NA CHLORIDE 0.9% 100 ML ONE (04:36)
[2020-09-30 04:43] LABS: Urine Blood NEGATIVE (NEG); Urine Glucose NEGATIVE (NEG); Urine Protein NEGATIVE (NEG); Urine pH 8.5 (5.0-7.0)
[2020-09-30 05:06] LABS: Barbiturates NEGATIVE (NEGATIVE); Benzodiazepines NEGATIVE (NEGATIVE); Cocaine NEGATIVE (NEGATIVE); METHAMPHETAM NEGATIVE (NEGATIVE); Methadone NEGATIVE (NEGATIVE); Opiates NEGATIVE (NEGATIVE); Phencyclidine NEGATIVE (NEGATIVE); THC Cannibis POSITIVE (NEGATIVE)
--- NOTE | 2020-09-30 06:11 | ER ---
Nurse's Notes [facility] Name: Nida Gutierrez Age: 20 yrs Sex: Female : 2000 Arrival Date: 09/30/2020 Time: 03:51 Bed 17 Private MD: Diagnosis: Headache Presentation: 09/30 04:11 Chief complaint: Patient states: Reports headache x 3 days intermittent, when she wakes lp1 and before sleep; States nausea tonight; States lights and noise seem to make headache worse; Denies any OTC medications to relieve pain, reports she cannot swallow pills. Coronavirus screen: Client denies travel out of the [place] in the last 14 days. At this time, the client does not indicate any symptoms associated with coronavirus-19. Ebola Screen: No symptoms or risks identified at this time. Initial Sepsis Screen: Does the patient meet any 2 criteria? No. Patient's initial sepsis screen is negative. Does the patient have a suspected source of infection? No. Patient's initial sepsis screen is negative. Risk Assessment: Do you want to hurt yourself or someone else? Patient reports no desire to harm self or others. Onset of symptoms was September 27, 2020. 04:11 Method Of Arrival: Ambulatory lp1 04:11 Acuity: AMBER 3 lp1 Triage Assessment: 04:14 Headache History: Denies prior headaches. 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 - Social history:: Smoking status: Patient denies any tobacco usage or history of. Patient uses alcohol, occasionally. Screenin:14 Abuse screen: Denies threats or abuse. Denies injuries from another. Nutritional lp1 screening: No deficits noted. Tuberculosis screening: No symptoms or risk factors identified. Fall Risk None identified. Assessment: 04:13 General: Appears in no apparent distress. Behavior is calm, cooperative, appropriate lp1 for age. Pain: Complains of pain in head Pain currently is 7 out of 10 on a pain scale. Quality of pain is described as aching. Neuro: Level of Consciousness is awake, alert, obeys commands, Oriented to person, place, time, situation, Gait is steady, Reports headache frontal area, photophobia. Cardiovascular: Patient's skin is warm and dry. Respiratory: Respiratory effort is even, unlabored. GI: Reports nausea. : No signs and/or symptoms were reported regarding the genitourinary system. EENT: No signs and/or symptoms were reported regarding the EENT system. Derm: Skin is pink, warm \T\ dry. Musculoskeletal: No deficits noted. 06:00 Reassessment: Patient appears in no apparent distress at this time. Patient is alert, lp1 oriented x 3, equal unlabored respirations, skin warm/dry/pink. Patient states feeling better. Patient states symptoms have improved. Vital Signs: 04:11 BP 112 / 92; Pulse 86; Resp 16; Temp 97.9(O); Pulse Ox 96% on R/A; Weight 63.5 kg (R); lp1 Pain 7/10; 06:00 BP 109 / 77; Pulse 82; Resp 16; Pulse Ox 98% on R/A; lp1 [place] Coma Score: 06:09 Eye Response: spontaneous(4). Verbal Response: oriented(5). Motor Response: obeys mh7 commands(6). Total: 15. ED Course: 03:51 Patient arrived in ED. am2 03:57 Marianna Tejeda, RN is Primary Nurse. lp1 03:58 Aram Chris MD is Attending Physician. mh7 04:13 Triage completed. lp1 04:13 Arm band placed on. lp1 04:14 Patient has correct armband on for positive identification. lp1 04:39 Inserted saline lock: 20 gauge in right antecubital area, using aseptic technique. lp1 04:58 CT Head Brain wo Cont In Process Unspecified. EDMS 06:45 No provider procedures requiring assistance completed. IV discontinued, No lp1 redness/swelling at site. Pressure dressing applied. Administered Medications: 04:39 Drug: NS 0.9% 1000 ml Route: IV; Rate: 1000 ml; Site: right antecubital; lp1 06:00 Follow up: IV Status: Completed infusion; IV Intake: 1000ml lp1 04:39 Drug: Benadryl 25 mg Route: IVP; Site: right antecubital; lp1 06:00 Follow up: Response: No adverse reaction lp1 Intake: 06:00 IV: 1000ml; Total: 1000ml. lp1 Outcome: 06:10 Discharge ordered by . 7 06:45 Discharged to home ambulatory, with significant other. lp1 06:45 Condition: good 06:45 Discharge instructions given to patient, Instructed on discharge instructions, follow up and referral plans. Demonstrated understanding of instructions, follow-up care. 06:46 Patient left the ED. 1 Signatures: Dispatcher [employer] EDMarianna Lee RN RN lp1 Elizabeth Styles am2 Aram Chris MD MD 7
--- NOTE | 2020-09-30 06:11 | EDPHYS ---
Physician Documentation [facility] Name: Nida Gutierrez Age: 20 yrs Sex: Female : 2000 Arrival Date: 09/30/2020 Time: 03:51 Bed 17 Private MD: ED Physician Aram Chris HPI: 09/30 04:31 This 20 yrs old Female presents to ER via Ambulatory with complaints of mh7 Headache, Nausea. 04:31 This 20 yrs old Female presents to ER via Ambulatory with complaints of mh7 Headache, Nausea. 04:31 The patient complains of pain to the forehead. The patient describes the headache as mh7 intermittent, throbbing, waxing and waning. Onset: The symptoms/episode began/occurred 3 day(s) ago. Associated signs and symptoms: Pertinent positives: nausea, Photophobia Pertinent negatives: altered mental status, dizziness, fever, malaise, neck stiffness, paresthesias, rash, sinus congestion, sinus tenderness, vision changes, vision loss, vomiting, weakness, vertigo. Severity of symptoms: At its worst the pain was moderate, yesterday, in the emergency department the pain has improved, mildly. Headache History: The patient has had previous headaches and this one is similar to previous episodes. The symptoms are alleviated by nothing. the symptoms are aggravated by lights, noise. 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 - Social history:: Smoking status: Patient denies any tobacco usage or history of. Patient uses alcohol, occasionally. ROS: 04:31 Constitutional: Negative for fever, chills, and weight loss, Eyes: Negative for injury, mh7 pain, redness, and discharge, ENT: Negative for injury, pain, and discharge, Neck: Negative for injury, pain, and swelling, Cardiovascular: Negative for chest pain, palpitations, and edema, Respiratory: Negative for shortness of breath, cough, wheezing, and pleuritic chest pain, Back: Negative for injury and pain, : Negative for injury, bleeding, discharge, and swelling, MS/Extremity: Negative for injury and deformity, Skin: Negative for injury, rash, and discoloration, Psych: Negative for depression, anxiety, suicide ideation, homicidal ideation, and hallucinations, Allergy/Immunology: Negative for hives, rash, and allergies, Endocrine: Negative for neck swelling, polydipsia, polyuria, polyphagia, and marked weight changes, Hematologic/Lymphatic: Negative for swollen nodes, abnormal bleeding, and unusual bruising. Exam: 04:31 Constitutional: This is a well developed, well nourished patient who is awake, alert, mh7 and in no acute distress. Head/Face: Normocephalic, atraumatic. Eyes: Pupils equal round and reactive to light, extra-ocular motions intact. Lids and lashes normal. Conjunctiva and sclera are non-icteric and not injected. Cornea within normal limits. Periorbital areas with no swelling, redness, or edema. Neck: Trachea midline, no thyromegaly or masses palpated, and no cervical lymphadenopathy. Supple, full range of motion without nuchal rigidity, or vertebral point tenderness. No Meningismus. Chest/axilla: Normal chest wall appearance and motion. Nontender with no deformity. No lesions are appreciated. Cardiovascular: Regular rate and rhythm with a normal S1 and S2. No gallops, murmurs, or rubs. Normal PMI, no JVD. No pulse deficits. Respiratory: Lungs have equal breath sounds bilaterally, clear to auscultation and percussion. No rales, rhonchi or wheezes noted. No increased work of breathing, no retractions or nasal flaring. Abdomen/GI: Soft, non-tender, with normal bowel sounds. No distension or tympany. No guarding or rebound. No evidence of tenderness throughout. Back: No spinal tenderness. No costovertebral tenderness. Full range of motion. Skin: Warm, dry with normal turgor. Normal color with no rashes, no lesions, and no evidence of cellulitis. MS/ Extremity: Pulses equal, no cyanosis. Neurovascular intact. Full, normal range of motion. Neuro: Awake and alert, GCS 15, oriented to person, place, time, and situation. Cranial nerves II-XII grossly intact. Motor strength 5/5 in all extremities. Sensory grossly intact. Cerebellar exam normal. Normal gait. Psych: Awake, alert, with orientation to person, place and time. Behavior, mood, and affect are within normal limits. Vital Signs: 04:11 BP 112 / 92; Pulse 86; Resp 16; Temp 97.9(O); Pulse Ox 96% on R/A; Weight 63.5 kg (R); lp1 Pain 7/10; 06:00 BP 109 / 77; Pulse 82; Resp 16; Pulse Ox 98% on R/A; lp1 [place] Coma Score: 06:09 Eye Response: spontaneous(4). Verbal Response: oriented(5). Motor Response: obeys [facility] commands(6). Total: 15. MDM: 04:17 Patient medically screened. [facility] 06:09 Differential diagnosis: cluster headache, intracerebral hemorrhage, migraine, tension mh7 headache. Data reviewed: vital signs, nurses notes, old medical records, lab test result(s), urinalysis, urine drug screen, UPT: radiologic studies, CT scan. Data interpreted: Pulse oximetry: on room air is 96 %. Interpretation: normal. Counseling: I had a detailed discussion with the patient and/or guardian regarding: the historical points, exam findings, and any diagnostic results supporting the discharge/admit diagnosis, lab results, radiology results, the need for outpatient follow up. Response to treatment: the patient's symptoms have resolved after treatment, the patient's blood pressure is in an acceptable range, mental status has returned to baseline, the patient no longer shows bradycardia, the patient is not short of breath, the patient is not tachycardic, the patient's pain is gone, the patient's temperature has normalized. 09/30 04:22 Order name: UDS; Complete Time: 06:08 [facility] 09/30 04:40 Order name: Urine Dipstick--Ancillary (enter results) 4 09/30 04:22 Order name: CT Head Brain wo Cont [facility] 09/30 04:40 Order name: Urine --Ancillary (enter results) [facility] 09/30 04:41 Order name: Urine Dipstick-Ancillary; Complete Time: 05:01 [facility]MA 09/30 04:41 Order name: Urine --Ancillary; Complete Time: 05:01 EDMA 09/30 04:22 Order name: Urine Dipstick-Ancillary (obtain specimen); Complete Time: 04:38 7 09/30 04:22 Order name: Urine Test (obtain specimen); Complete Time: :38 mh7 Administered Medications: 04:39 Drug: NS 0.9% 1000 ml Route: IV; Rate: 1000 ml; Site: right antecubital; lp1 06:00 Follow up: IV Status: Completed infusion; IV Intake: 1000ml lp1 04:39 Drug: Benadryl 25 mg Route: IVP; Site: right antecubital; lp1 06:00 Follow up: Response: No adverse reaction lp1 Disposition: 09/30/20 06:10 Discharged to Home. Impression: Headache. - Condition is Stable. - Discharge Instructions: General Headache Without Cause. - Work release form, Medication Reconciliation Form, Thank You Letter, Antibiotic Education, Prescription Opioid Use form. - Follow up: Private Physician; When: 1 - 2 days; Reason: Worsening of condition, Recheck today's complaints, Continuance of care, Re-evaluation by your physician. - Problem is an acute exacerbation. - Symptoms have improved. Signatures: Dispatcher [employer] EDMarianna Lee RN RN 1 Aram Chris MD MD 7 Corrections: (The following items were deleted from the chart) 06:46 06:10 09/30/2020 06:10 Discharged to Home. Impression: Headache. Condition is Stable. 1 Forms are Medication Reconciliation Form, Thank You Letter, Antibiotic Education, Prescription Opioid Use. Follow up: Private Physician; When: 1 - 2 days; Reason: Worsening of condition, Recheck today's complaints, Continuance of care, Re-evaluation by your physician. Problem is an acute exacerbation. Symptoms have improved. 7
[2020-09-30 08:38] VITALS: TEMP 97.9
[2020-09-30 08:40] VITALS: BP 109/77; O2SAT 98
--- NOTE | 2020-10-01 12:06 | RAD REPORT ---
EXAM DESCRIPTION: CT - Head Brain Wo Cont - 09/30/2020 8:21 am CLINICAL HISTORY: HEADACHE COMPARISON: 01/15/2018 TECHNIQUE: Axial CT of the head obtained from the skull apex to the skull base without contrast. FINDINGS: No acute intracranial hemorrhage identified. No mass, mass effect, shift of the midline, a bnormal extra-axial fluid collection or CT evidence of acute ischemic change identified. The ventricu lar system is unremarkable. No acute abnormalities of the supratentorial white matter, basal gangli a, cerebellum, or brainstem. The visualized paranasal sinuses and the mastoid air cells are relatively well aerated. No skull fr acture identified. Visualized orbits and globes are unremarkable. IMPRESSION: 1. No acute intracranial abnormality identified. This exam was performed according to our departmental dose-optimization program, which includes autom ated exposure control, adjustment of the mA and/or kV according to patient size and/or use of iterati ve reconstruction technique. 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 The interpreting radiologist is fully responsible for the content of the report.
== END 2020-09-30 06:46 | disposition home or self-care (01) ==
LOC: ER 03:48
DX: R51.9 Headache, unspecified (principal)
CPT/HCPCS: 70450; 80307; 81003; 81025; 96361; 96374; 99283; J1200

== ENCOUNTER 2023-05-29 12:30 | Emergency (ER) | payer SELFPAY ==
--- OUTSIDE RECORDS SUMMARY | 2023-05-29 12:33 | XMS REPORT | Continuity of Care Document ---
:2000 Author Organization [facility] t Address [address] [place] [address]. [address] [place] [address] Care Team Providers Name Role Phone Pcp, Patient Does Not Have A Primary Care Physician [phone] Kerrie Maciel DO Attending Clinician Doctor Unassigned, [place] Attending Clinician Unavailable EVELYNE ROMANO Attending Clinician Unavailable 1, [facility] Attending Clinician Unavailable Nurse, [facility] Attending Clinician Unavailable Pob, [facility] Main Attending Clinician Unavailable Evelyne Romano PA-C Attending Clinician 2, [facility] Attending Clinician Unavailable Payers Payer Name Policy Type Policy Number Effective Date Expiration Date [facility] [id number] 2019 CHOICE MEDICAID 00:00:00 [place] [id number] 2020 WOMEN 00:00:00 Problems Condition Condition Condition Status Onset Resolution Last Treating Co mments Source Name Details Category Date Date Treatment Clinician Date No known No known Disease Unive rs active active ity of problems problems [facility] Allergies, Adverse Reactions, Alerts Allergy Allergy Status Severity Reaction(s) Onset Inactive Treating Comm ents Source Name Type Date Date Clinician NO KNOWN Drug Active Univers ALLERGIE Class ity of S [facility] Social History Social Habit Start Date Stop Date Quantity Comments Source Exposure to Not sure University of SARS-CoV-2 [place] [facility] (event) Branch History SDOH University o f Alcohol [place] [facility] Frequency Branch History SDOH University o f Alcohol Std [place] [facility] Drinks Branch History SDOH University o f Alcohol Binge [place] [facility] al [facility] Alcohol intake 2021-08-28 2021-08-28 Current drinker of Un iversity of 00:00:00 00:00:00 alcohol (finding) [facility] Alcohol Comment 2019-07-26 2019-07-26 occassionally Univer sity of 00:00:00 00:00:00 [facility] Tobacco use and 2019-03-03 2019-03-03 Never used Universit y of exposure 00:00:00 00:00:00 [facility] Sex Assigned At [birth year] Universit y of 00:00:00 00:00:00 [facility] Smoking Status Start Date Stop Date Source Never smoker [facility] Medications Ordered Filled Start Stop Current Ordering Indication Dosage Frequency Signature Comments Components Source Medication Medication Date Date Medication? Clinician (SIG) Name Name diazePAM 2020-11- No 5mg 5 mg, Univers (VALIUM) 0-14 10-14 Oral, ity of tablet 5 mg 04:45: 03:53 [place] 1 [place] dose, On Medical Wed Branch 08/28/21 at 2345, GLEN[place] HYDROcodone 2020-11- No 1{tbl} 1 tablet, Univers -acetaminop 0-14 10-14 Oral, ity of hen (NORCO 04:45: 03:53 ONCE, 1 Brett as 5) 5-325 mg 00 :00 dose, On Medi monica tablet 1 Wed Branch tablet 08/28/21 at 2345, GLENRO[place] cyclobenzap 2020-11 Yes [id number] 10mg Take 1 Univers rine 10 mg 0-14 tablet by ity of tablet 00:00: mouth 3 [place] 00 (three) Medical times Branch daily as needed for Muscle Spasms. proMETHazin Yes 25mg Take 1 Univ ers e 25 mg 9-13 tablet by ity of tablet 00:00: mouth [place] 00 every 4 Medical (four) Branch hours as needed (For nausea associated with Azithromyc in Rx). azithromyci Yes TK 2 TS PO Univers n 500 mg 9-13 ONCE NOW ity of tablet 00:00: FOR 1 [place] 00 DOSE. Medical Branch proMETHazin Yes 25mg Take 1 Univ ers e 25 mg 9-13 tablet by ity of tablet 00:00: mouth [place] 00 every 4 Medical (four) Branch hours as needed (For nausea associated with Azithromyc in Rx). azithromyci Yes TK 2 TS PO Univers n 500 mg 9-13 ONCE NOW ity of tablet 00:00: FOR 1 00 DOSE. Medical Branch Yes 2{tbl} Take 2 Unive rs vits62/FA/o 9-10 tablets by it y of m3/dha/epa 15:27: mouth [place] ( 44 daily. Medical GUMMY ORAL) Branch Yes 2{tbl} Take 2 Unive rs vits62/FA/o 9-10 tablets by it y of m3/dha/epa 15:27: mouth [place] ( 44 daily. Medical GUMMY ORAL) Branch Immunizations Ordered Immunization Filled Immunization Date Status Commen ts Source Name Name Rho (d) Immune 2019-02-23 Completed University of Globulin 00:00:00 [facility] Rho (d) Immune 2019-02-23 Completed University of Globulin 00:00:00 [facility] Meningococcal 2011-12-09 Completed University of Polysaccharide 00:00:00 [facility] (groups A, C, Y and Branc h W-135) conjugate vaccine (MCV4P) TDAP 2011-12-09 Completed University of 00:00:00 [facility] Varicella 2011-12-09 Completed University of (varivax)(chicken 00:00:00 [place] M edical pox) Branch Meningococcal 2011-12-09 Completed University of Polysaccharide 00:00:00 [facility] (groups A, C, Y and Branc h W-135) conjugate vaccine (MCV4P) TDAP 2011-12-09 Completed University of 00:00:00 [facility] Varicella 2011-12-09 Completed University of (varivax)(chicken 00:00:00 [place] M edical pox) Branch Hepatitis A Adult 2006-06-09 Completed Univers ity of 00:00:00 [facility] Hepatitis A Adult 2006-06-09 Completed Univers ity of 00:00:00 [facility] DTAP 2004-06-25 Completed University of 00:00:00 [facility] MMR 2004-06-25 Completed University of 00:00:00 [facility] Polio (IPV/OPV) 2004-06-25 Completed Universit y of 00:00:00 [facility] DTAP 2004-06-25 Completed University of 00:00:00 [facility] MMR 2004-06-25 Completed University of 00:00:00 [facility] Polio (IPV/OPV) 2004-06-25 Completed Universit y of 00:00:00 [facility] Vital Signs Vital Name Observation Time Observation Value Comments Source Systolic blood 2021-08-29 05:03:05 109 mm[Hg] Univer sity of pressure [facility] Diastolic blood 2021-08-29 05:03:05 77 mm[Hg] Unive rsity of pressure [facility] Heart rate 2021-08-29 05:03:05 73 /min [facility] Respiratory rate 2021-08-29 05:03:05 16 /min [facility] Oxygen saturation in 2021-08-29 05:03:05 100 /min [facility] Arterial blood by [facility] Pulse oximetry [place] Body temperature 2021-08-29 03:35:00 36.94 Linnea [facility] Procedures Procedure Date / Time Performed Performing Clinician [facility] e NOTICE OF PRIVACY 2021-08-29 03:30:53 Doctor Unassigned, No [facility] CONSENT/REFUSAL FOR 2021-08-29 03:29:28 Doctor Unassigned, No [facility] AND [facility] TREATMENT Encounters Start End Encounter Admission Attending Care Care Encounter Source Date/Time Date/Time Type Type Clinicians Facility Department ID 2021-09-17 Emergency [facility] [id number] Univers 06:38:51 ity of [facility] 2021-08-28 2021-08-29 [facility] [id number] Univers 22:41:00 00:20:00 Kerrie Estrada [id number] ity of [place] [id number] [facility] [phone] [facility] 084 Branch 2021-08-28 2021-08-28 Orders Doctor SANCHEZ [id number] Univers 00:00:00 00:00:00 Only Unassigned, SEGUN [id number] ity of [place] [facility] [id number] [place] [id number] [facility] 009 Branch 2020-07-31 2020-07-31 Outpatient R SEBLEDARYL, [facility] [id number] [facility] 10:45:00 10:45:00 EVELYNE florecita [facility] 2020-07-27 2020-07-27 Outpatient R SCOUT [facility] [id number] [facility] 10:45:00 10:45:00 [facility] 2019-12-27 2019-12-27 Truck Operator 1, [facility] [id number] 10:10:38 10:25:38 Visit [place] [id number] [place] [id number] [place] [id number] [id number] 2019-12-27 2019-12-27 Orders Doctor DANIEL [id number] 00:00:00 00:00:00 Only Unassigned, SEGUN [id number] [place] [facility] [id number] [id number] 009 2019-12-27 2019-12-27 Telephone Nurse, [facility] [id number] 00:00:00 00:00:00 Women's [place] [id number] Health [place] [id number] Professio [id number] [address] 2019-12-23 2019-12-23 Truck Operator Nino, [facility] [id number] 11:17:50 11:32:50 Visit Lab Main [place] [id number] [place] [id number] Professio [id number] [address] 2019-12-23 2019-12-23 Outpatient Arcelia PRUETTLEOBARDOMERAVT [facility] [id number] [facility] 11:30:00 11:30:00 [facility] 2019-12-21 2019-12-21 Truck Operator Nino, [facility] 1.2.840.114 [id number] 11:14:10 11:29:10 Visit Lab Main [place] [id number] [place] [id number] Professio [id number] [address] 2019-12-21 2019-12-21 [facility] [id number] 00:00:00 00:00:00 Management Evelyne Estrada [id number] [place] [id number] Professio [phone] [facility] 134 [facility] 2019-12-20 2019-12-20 Telephone Scout OHKRIS 1.2.840.114 [id number] 00:00:00 00:00:00 Evelyne Estrada [id number] [place] [id number] Professio [phone] [address] 2019-12-19 2019-12-19 Truck Operator 2, [facility] Lab [facility] [id number] 13:41:09 13:56:09 Visit Natalie [id number] [place] [id number] Professio [phone] [address] 2019-12-19 2019-12-19 Office Scout [facility] [id number] 13:03:35 13:32:08 Visit Evelyne Estrada [id number] [place] [id number] Professio [id number] [address] 2019-12-19 2019-12-19 Orders Doctor DANIEL [id number] 00:00:00 00:00:00 Only Unassigned, SEGUN [id number] [place] [facility] [id number] [id number] [id number] Results This patient has no known results.
--- NOTE | 2023-05-29 12:49 | ER ---
Nurse's Notes [facility] Name: Nida Gutierrez Age: 22 yrs Sex: Female : 2000 Arrival Date: 05/29/2023 Time: 12:30 Bed 12 Private MD: Diagnosis: Puncture wound with foreign body in left ear lobe Presentation: 05/29 12:32 Chief complaint: Patient states: My earring started hurting last night and I noticed ss this morning that the earring is stuck in my ear. Redness and swelling noted to L ear lobe. Coronavirus screen: Client denies travel out of the [place] in the last 14 days. Ebola Screen: Patient denies exposure to infectious person. Patient denies travel to an Ebola-affected area in the 21 days before illness onset. Initial Sepsis Screen: Does the patient meet any 2 criteria? No. Patient's initial sepsis screen is negative. Does the patient have a suspected source of infection? No. Patient's initial sepsis screen is negative. Risk Assessment: Do you want to hurt yourself or someone else? Patient reports no desire to harm self or others. Onset of symptoms was May 29, 2023. 12:32 Method Of Arrival: Ambulatory ss 12:32 Acuity: AMBER 5 ss Historical: - Allergies: 12:45 No Known Allergies; ss - Home Meds: 12:45 None [Active]; ss - PMHx: 12:45 None; ss - PSHx: 12:45 None; ss Screenin:46 [facility] ED Fall Risk Assessment (Adult) History of falling in the last 3 months, ss including since admission No falls in past 3 months (0 pts). Abuse screen: Denies threats or abuse. Denies injuries from another. Nutritional screening: No deficits noted. Tuberculosis screening: Never had TB. Assessment: 12:46 General: Appears in no apparent distress. comfortable, Behavior is calm, cooperative. ss General: Pt c/o tenderness to L ear lobe that began last night. RR even and unlabored. Pt is A\T\O x3. Family member remains with patient at bedside. FLASH Heredia at bedside to assess patient . Pain:. Vital Signs: 12:32 BP 111 / 84; Pulse 66; Resp 15; Temp 98(TE); Pulse Ox 100% on R/A; Weight 54.43 kg; ss Height 4 ft. 11 in. ; Pain 0/10; 12:32 Body Mass Index 24.24 (54.43 kg, 149.86 cm) ss 12:32 Pain Scale: Adult ss ED Course: 12:32 Patient arrived in ED. ts1 12:38 Giovanna Saleem FNP-C is [facility]. kb 12:38 Munir Serrato MD is Attending Physician. kb 12:45 Triage completed. ss 12:45 Arm band placed on right wrist. ss 12:46 Patient has correct armband on for positive identification. ss 12:46 No provider procedures requiring assistance completed. Patient did not have IV access ss during this emergency room visit. Administered Medications: No medications were administered Medication: 12:46 VIS not applicable for this client. ss Outcome: 12:48 Discharge ordered by . kb 12:52 Discharged to home ambulatory, with family. ss 12:52 Condition: good 12:52 Discharge instructions given to patient, Instructed on discharge instructions, follow up and referral plans. Demonstrated understanding of instructions, follow-up care. 12:52 Patient left the ED. ss Signatures: Giovanna Saleem FNP-C FNP-Noreen Gil, RN RN ss Esperanza Worrell, MEY PAS ts1
--- NOTE | 2023-05-29 12:49 | EDPHYS ---
Physician Documentation [facility] Name: Nida Gutierrez Age: 22 yrs Sex: Female : 2000 Arrival Date: 05/29/2023 Time: 12:30 Bed 12 Private MD: ED Physician Munir Serrato HPI: 05/29 13:07 This 22 yrs old Female presents to ER via Ambulatory with complaints of Ear Injury. kb 13:07 The patient or guardian reports the patient has a suspected foreign body, of the ear, kb on the left. The reported likely foreign body is piece of jewelry. Onset: The symptoms/episode began/occurred this morning. Current symptoms: foreign body sensation. Treatment Prior to Arrival: tried to remove, but couldn't get out. The patient has not experienced similar symptoms in the past. The patient has not recently seen a physician. Pt reports she woke up with the front of her earring inside of her earlobe. Historical: - Allergies: 12:45 No Known Allergies; ss - Home Meds: 12:45 None [Active]; ss - PMHx: 12:45 None; ss - PSHx: 12:45 None; ss ROS: 13:00 Constitutional: Negative for fever, chills, and weight loss. kb 13:00 Skin: Positive for earring stuck in left earlobe. 13:00 All other systems are negative. Exam: 13:02 Constitutional: This is a well developed, well nourished patient who is awake, alert, kb and in no acute distress. Head/Face: Normocephalic, atraumatic. ENT: Moist Mucous membranes Respiratory: Respirations even and unlabored. No increased work of breathing. Talking in full sentences MS/ Extremity: Pulses equal, no cyanosis. Neurovascular intact. Full, normal range of motion. Neuro: Awake and alert, GCS 15, oriented to person, place, time, and situation. Moves all extremities. Normal gait. 13:02 ENT: External ear(s): front of earring in left earlobe. Vital Signs: 12:32 BP 111 / 84; Pulse 66; Resp 15; Temp 98(TE); Pulse Ox 100% on R/A; Weight 54.43 kg; ss Height 4 ft. 11 in. ; Pain 0/10; 12:32 Body Mass Index 24.24 (54.43 kg, 149.86 cm) ss 12:32 Pain Scale: Adult ss Procedures: 13:01 Foreign Body Removal: piece of jewelry, from the left left ear lobe, by pushed earring kb back through and earring removed. The patient tolerated the removal well. MDM: 12:38 Patient medically screened. kb 13:01 Data reviewed: vital signs, nurses notes. kb 13:01 Counseling: I had a detailed discussion with the patient and/or guardian regarding: the kb historical points, exam findings, and any diagnostic results supporting the discharge/admit diagnosis, the need for outpatient follow up, a family practitioner, to return to the emergency department if symptoms worsen or persist or if there are any questions or concerns that arise at home. Administered Medications: No medications were administered Disposition Summary: 05/29/23 12:48 Discharge Ordered Location: Home kb Condition: Stable kb Diagnosis - Puncture wound with foreign body in left ear lobe kb Followup: kb - With: Emergency Department - When: As needed - Reason: Worsening of condition Followup: kb - With: Private Physician - When: 2 - 3 days - Reason: Recheck today's complaints, Continuance of care, Re-evaluation by your physician Discharge Instructions: - Discharge Summary Sheet kb - Ear Foreign Body, [id number] kb Forms: - Medication Reconciliation Form kb - Thank You Letter kb - Antibiotic Education kb - Prescription Opioid Use kb - Patient Portal Instructions kb Signatures: Giovanna Saleem FNP-C FNP-Noreen Gli, RN RN ss
[2023-05-29 13:41] VITALS: BP 111/84; TEMP 98; O2SAT 100
== END 2023-05-29 12:52 | disposition home or self-care (01) ==
LOC: ER 12:30
DX: S01.342A Puncture wound with foreign body of left ear, initial encounter (principal)
CPT/HCPCS: 99282

== ENCOUNTER 2023-08-04 11:48 | Emergency (ER) | payer SELFPAY ==
--- NOTE | 2023-08-04 13:32 | ER ---
Nurse's Notes [facility] Name: Nida Gutierrez Age: 22 yrs Sex: Female : 2000 Arrival Date: 08/04/2023 Time: 11:48 Bed IW3 Private MD: Diagnosis: Acute upper respiratory infection, unspecified;Contact with and (suspected) exposure to other viral communicable diseases Presentation: 08/04 12:30 Chief complaint: Patient states: throat itching and cough started 3 days ago, fever 5 started last night. Coronavirus screen: Vaccine status: Patient reports being unvaccinated. Client denies travel out of the [place] in the last 14 days. Ebola Screen: Patient negative for fever greater than or equal to 101.5 degrees Fahrenheit, and additional compatible Ebola Virus Disease symptoms Patient denies exposure to infectious person. Patient denies travel to an Ebola-affected area in the 21 days before illness onset. Initial Sepsis Screen: Does the patient meet any 2 criteria? No. Patient's initial sepsis screen is negative. Does the patient have a suspected source of infection? No. Patient's initial sepsis screen is negative. Risk Assessment: Do you want to hurt yourself or someone else? Patient reports no desire to harm self or others. 12:30 Method Of Arrival: Ambulatory [facility] 12:30 Acuity: AMBER 4 [facility] Triage Assessment: 12:31 General: Appears in no apparent distress. slender, well groomed, Behavior is calm, 5 cooperative, appropriate for age. Pain: Denies pain. EENT: Reports throat discomfort and itching. 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 - Social history:: Smoking status: Patient denies any tobacco usage or history of. Vital Signs: 12:30 BP 113 / 74; Pulse 101; Resp 16; Temp 98.6; Pulse Ox 100% ; Weight 58.97 kg; Height 4 [facility] ft. 11 in. ; Pain 0/10; 12:30 Body Mass Index 26.26 (58.97 kg, 149.86 cm) [facility] 12:30 Pain Scale: Adult [facility] ED Course: 11:51 Patient arrived in ED. im 11:54 Elizabeth Brizuela, FLASH is PHCP. aj3 11:54 Yon De MD is Attending Physician. aj3 12:31 Triage completed. jh5 12:31 Arm band placed on right wrist. jh5 12:42 Flu Sent. jh5 12:42 RSV Sent. jh5 12:42 Strep Sent. jh5 12:42 COVID-19 SARS RT PCR Sent. jh5 14:03 Patient has correct armband on for positive identification. jl7 14:03 No provider procedures requiring assistance completed. Patient did not have IV access jl7 during this emergency room visit. Administered Medications: No medications were administered Medication: 14:03 VIS not applicable for this client. jl7 Outcome: 13:31 Discharge ordered by . aj3 14:03 Discharged to home ambulatory, jl7 14:03 Condition: stable 14:03 Discharge instructions given to patient, family, Instructed on discharge instructions, follow up and referral plans. medication usage, Demonstrated understanding of instructions, follow-up care, medications, Prescriptions given X 1, 14:04 Patient left the ED. jl7 Signatures: Leonidas Calderon RN RN jl7 Paola Felton RN RN 5 Elizabeth Brizuela NP ED PHYSICIANS Marie Lee im
--- NOTE | 2023-08-04 13:32 | EDPHYS ---
Physician Documentation [facility] Name: Nida Gutierrez Age: 22 yrs Sex: Female : 2000 Arrival Date: 08/04/2023 Time: 11:48 Bed IW3 Private MD: ED Physician Yon De HPI: 08/04 13:00 This 22 yrs old Female presents to ER via Ambulatory with complaints of Fever, Cough, aj3 Sore Throat. 13:00 Patient reports that she was exposed to somebody at work who had COVID. She reports aj3 that she is having a cough, sore throat, congestion, body aches and headache. No reports of any GI symptoms or urinary symptoms.. 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 - Social history:: Smoking status: Patient denies any tobacco usage or history of. ROS: 13:00 Cardiovascular: Negative for chest pain, palpitations, and edema, aj3 13:00 Abdomen/GI: Negative for abdominal pain, nausea, vomiting, diarrhea, and constipation, : Negative for dysuria, hematuria, discharge or pelvic pain 13:00 Constitutional: Positive for body aches, Negative for fever, 13:00 ENT: Positive for sinus congestion, sore throat, 13:00 Neck: Negative for swollen nodes, tenderness, 13:00 Respiratory: Positive for cough, Negative for dyspnea on exertion, shortness of breath, 13:00 MS/extremity: Positive for pain, 13:00 Neuro: Positive for headache, Negative for dizziness, syncope, weakness, Exam: 13:00 Constitutional: This is a well developed, well nourished patient who is awake, alert, aj3 and in no acute distress. Head/Face: Normocephalic, atraumatic. 13:00 Cardiovascular: Regular rate and rhythm with a normal S1 and S2. No gallops, murmurs, or rubs. Normal PMI, no JVD. No pulse deficits. Respiratory: Lungs have equal breath sounds bilaterally, clear to auscultation and percussion. No rales, rhonchi or wheezes noted. No increased work of breathing, no retractions or nasal flaring. Abdomen/GI: Soft, non-tender, with normal bowel sounds. No distension or tympany. No guarding or rebound. No evidence of tenderness throughout. Skin: Warm, dry with normal turgor. Normal color with no rashes, no lesions, and no evidence of cellulitis. MS/ Extremity: Pulses equal, no cyanosis. Neurovascular intact. Full, normal range of motion. Neuro: Awake and alert, GCS 15, oriented to person, place, time, and situation. Motor strength 5/5 in all extremities. Sensory grossly intact. Normal gait. 13:00 ENT: Nose: Nasal mucosa: edematous, Posterior pharynx: is normal, Vital Signs: 12:30 BP 113 / 74; Pulse 101; Resp 16; Temp 98.6; Pulse Ox 100% ; Weight 58.97 kg; Height 4 jh5 ft. 11 in. ; Pain 0/10; 12:30 Body Mass Index 26.26 (58.97 kg, 149.86 cm) [facility] 12:30 Pain Scale: Adult [facility] MDM: 12:57 Patient medically screened. [facility] 14:00 Differential diagnosis: COVID-19, influenza, RSV, bronchitis, pneumonia, mono, viral aj3 respiratory infection. Data reviewed: vital signs, nurses notes, lab test result(s), I have discussed the patient's presentation/case with the attending Emergency Department Physician;. Test considered but Not performed: X-ray: Chest x-ray clear and oxygen saturation normal. Historians other than the Patient: Parent: Mother. Counseling: I had a detailed discussion with the patient and/or guardian regarding the historical points, exam findings, and any diagnostic results supporting the discharge/admit diagnosis, lab results, the need for outpatient follow up, to return to the emergency department if symptoms worsen or persist or if there are any questions or concerns that arise at home. 08/04 12:27 Order name: Flu; Complete Time: 13:18 08/04 12:27 Order name: RSV; Complete Time: 13:12 08/04 12:27 Order name: Strep 3 08/04 12:27 Order name: COVID-19 SARS RT PCR; Complete Time: 13:30 08/04 13:01 Order name: Throat Culture EDMS 08/04 12:27 Order name: Droplet/Contact Precautions; Complete Time: 12:30 08/04 12:27 Order name: Labs collected and sent; Complete Time: 12:42 aj3 08/04 12:27 Order name: O2 Per Protocol; Complete Time: 12:29 aj3 Administered Medications: No medications were administered Disposition Summary: 08/04/23 13:31 Discharge Ordered Notes: Location: Home aj3 Problem: new aj3 Symptoms: are unchanged aj3 Condition: Stable aj3 Diagnosis - Acute upper respiratory infection, unspecified aj3 - Contact with and (suspected) exposure to other viral communicable diseases aj3 Followup: aj3 - With: Private Physician - When: - Reason: Recheck today's complaints, Re-evaluation by your physician Discharge Instructions: - Discharge Summary Sheet aj3 - Upper Respiratory Infection, Adult aj3 Forms: - Work release form aj3 - Medication Reconciliation Form aj3 - Thank You Letter aj3 - Antibiotic Education aj3 - Prescription Opioid Use aj3 - Patient Portal Instructions aj3 - Leadership Thank You Letter aj3 Prescriptions: - Bromfed DM 2-30-10 mg/5 mL Oral syrup - administer 10 milliliter ORAL route every 4 to 6 hours as needed for cold aj3 symptoms; 100 milliliter; Refills: 0, Product Selection Permitted Signatures: Dispatcher [employer] Paola De Guzman RN RN jh5 Elizabeth Brizuela NP RN CARDIOVASCULAR aj3
[2023-08-04 15:30] VITALS: BP 113/74; TEMP 98.6; O2SAT 100
== END 2023-08-04 14:04 | disposition home or self-care (01) ==
LOC: ER 11:48
DX: J06.9 Acute upper respiratory infection, unspecified (principal); Z20.828 Contact with and (suspected) exposure to other viral communicable diseases; Z20.822 Contact with and (suspected) exposure to COVID-19
CPT/HCPCS: 87070; 87081; 87635; 87804; 87807